=== PATIENT | female | born 1980 | race Asian ===

== ENCOUNTER 2022-06-01 11:11 | Emergency (ER) | payer BC ==
[2022-06-01] MEDS ORDERED: Ondansetron 4 MG/2 ML SDV IVPUSH ONE (11:40)
[2022-06-01] MEDS ORDERED: Ketorolac 30 MG/ML SDV IVPUSH ONE (11:40)
[2022-06-01] MEDS ORDERED: LORazepam 2 MG/ML SDV IVPUSH ONE (11:40)
[2022-06-01] MEDS ORDERED: Sodium Chloride 0.9% 1,000 ML IV SCH (11:45)
[2022-06-01] MEDS ORDERED: Ketorolac 10 MG Tab PO ONE (12:02)
[2022-06-01 13:14] LABS: CORONAVIRUS COVID-19 NAA NEGATIVE (NEGATIVE); INFLUENZA A NAA POSITIVE (NEGATIVE); INFLUENZA B NAA NEGATIVE (NEGATIVE)
== END 2022-06-01 13:32 | disposition home or self-care (01) ==
LOC: MW.ED 11:11
DX: J10.1 Influenza due to other identified influenza virus with other respiratory manifestations (principal); R51.9 Headache, unspecified; Z20.822 Contact with and (suspected) exposure to COVID-19
CPT/HCPCS: 0240U; 99284; A9270